=== PATIENT | female | born 1965 | race Caucasian/White ===

== ENCOUNTER 2016-08-08 08:24 | Day surgery (SDC) | payer OTHER ==
[2016-08-06 08:32] VITALS: BMI 27.4
[~2016-08-08 08:24] MED LIST: LACTATED RINGERS 1,000 ML IV SCH
[2016-08-08 08:48] VITALS: RESP 16; TEMP 97.6
[2016-08-08] MEDS ORDERED: LIDOCAINE 1% 20 ML VIAL (10MG/ML) FOR IV START SQ ONE (08:51)
[2016-08-08] MEDS ORDERED: PROPOFOL 10 MG/ML 20 ML VIAL IV ONE (09:22)
--- NOTE | 2016-08-08 09:32 | P.PCN ---
Date of Procedure: 08/08/16 Procedure(s) Performed: BRIEF HISTORY: Patient is a 51-year-old, pleasant, white female, scheduled for an upper endoscopy as a part of evaluation of intermittent dysphagia to solids for the last 1 year duration. His symptoms have been once or twice a week and often to solids. She denies any heartburn. She reports no odynophagia. She denies any choking episodes. In view of the symptoms she is scheduled for an upper endoscopy with possible dilation. PROCEDURE PERFORMED: Esophagogastroduodenoscopy with biopsy. PREOPERATIVE DIAGNOSIS: Intermittent dysphagia to solids of 1 year duration. IV sedation per anesthesia. PROCEDURE: After informed consent was obtained, the patient was brought into the endoscopy unit. IV conscious sedation was administered by Anesthesia under continuous monitoring. Initially the Olympus GIF-140 video endoscope was inserted into the mouth. Esophagus intubated without any difficulty. It was gradually advanced into the stomach and duodenum and carefully examined. The bulb and the second part of the duodenum appeared normal. The scope at this time was withdrawn to the stomach, adequately insufflated with air, and upon careful examination, mucosa of the antrum, had mild gastritis and biopsies were done from this area. The body, cardia and the fundus appeared normal. The scope was then withdrawn into the esophagus. The GE junction was located at 39 cm from the incisors. The esophagus appeared normal. Biopsies were done from the midesophagus to rule out eosinophilic esophagitis. There were no erosions or ulcerations seen, no evidence of esophageal stricture and the patient tolerated the procedure well. IMPRESSION: 1. Mild antral gastritis. 2. Normal-appearing esophagus with no evidence of esophagitis, esophageal stricture or esophageal. RECOMMENDATIONS: The findings of this examination were discussed with the patient as well as her family. She was advised to follow with the biopsy results. She may benefit from a trial of Prilosec 20 mg daily and he suggested that she can use [id number] medication for 6 weeks to see if this resolves the symptoms.
[2016-08-08 10:04] VITALS: BP 113/69; PULSE 61
== END 2016-08-08 10:32 | disposition home or self-care (01) ==
LOC: ORWHC2ENDO 08:24
PROVIDERS: ATTEND Internal Medicine Gastroenterology
DX: K29.50 Unspecified chronic gastritis without bleeding (principal); R13.10 Dysphagia, unspecified; J45.909 Unspecified asthma, uncomplicated; G47.33 Obstructive sleep apnea (adult) (pediatric); E07.9 Disorder of thyroid, unspecified; Z79.899 Other long term (current) drug therapy; Z88.5 Allergy status to narcotic agent; Z88.2 Allergy status to sulfonamides
CPT/HCPCS: 81025; 88305; 88342; 43239; J2704

== ENCOUNTER → 2018-01-11 | Outpatient (CLI) | payer OTHER ==
--- NOTE | 2018-01-11 22:08 | CT ---
EXAMINATION TYPE: CT abdomen pelvis wo con DATE OF EXAM: 01/11/2018 HISTORY: Mid abdominal pain x [address] DLP: 934 mGycm. Automated Exposure Control for Dose Reduction was Utilized. TECHNIQUE: CT scan of the abdomen and pelvis is performed without oral or IV contrast. COMPARISON: NONE FINDINGS: Within the limitations of a non-contrast study, the following observations are made. LUNG BASES: No significant abnormality is appreciated. LIVER/GB: No significant abnormality is appreciated. PANCREAS: No significant abnormality is seen. SPLEEN: No significant abnormality is seen. ADRENALS: No significant abnormality is seen. KIDNEYS: No renal calculi or hydronephrosis is present bilaterally. BOWEL: Evaluation bowel slightly suboptimal secondary to lack of enteric contrast. There is no suspic ious small or large bowel dilatation. There is low lying cecum into the right pelvis. Normal-appearin g appendix is seen ascending from cecum. GENITAL ORGANS: Slightly retroverted uterus is seen. Scattered pelvic phleboliths are present. LYMPH NODES: No greater than 1cm abdominal or pelvic lymph nodes are appreciated. OSSEOUS STRUCTURES: No significant abnormality is seen. OTHER: There is mild calcified plaque of distal abdominal aorta extending into pelvic branch vessels. IMPRESSION: No suspicious acute finding is seen on noncontrast study to account for patient's symptom s.
== END | disposition home or self-care (01) ==
LOC: RADCTMAIN 18:26
PROVIDERS: ATTEND Family Medicine
DX: R10.9 Unspecified abdominal pain (principal)
CPT/HCPCS: 74176

== ENCOUNTER 2018-02-12 10:54 | Day surgery (SDC) | payer OTHER ==
[2018-02-10 12:01] VITALS: BMI 32.3
[~2018-02-12 10:54] MED LIST changes: +LIDOCAINE 1% 20 ML VIAL (10MG/ML) FOR IV START INTRADERMA PRN; +MIDAZOLAM 2 MG/2 ML VIAL IV PRN
[2018-02-12 11:38] VITALS: RESP 16; TEMP 98.4
[2018-02-12] MEDS ORDERED: LIDOCAINE 1% INJ 10MG/ML (20 ML MDV) ONE (12:26)
[2018-02-12] MEDS ORDERED: PROPOFOL 10 MG/ML 20 ML VIAL IV ONE (12:26)
--- NOTE | 2018-02-12 12:45 | P.PCN ---
Date of Procedure: 02/12/18 Procedure(s) Performed: BRIEF HISTORY: Patient is a 53-year-old pleasant white female scheduled for an elective colonoscopy as a part of screening for colon neoplasia. PROCEDURE PERFORMED: Colonoscopy. PREOPERATIVE DIAGNOSIS: Screening for colon cancer. IV sedation per Anesthesia. PROCEDURE: After informed consent was obtained, the patient, was brought into the endoscopy unit. IV sedation was administered by Anesthesia under continuous monitoring. Digital rectal examination was normal. Initially the Olympus CF- 160 flexible video colonoscope was then inserted in the rectum, gradually advanced into the cecum without any difficulty. Careful examination was performed as the scope was gradually being withdrawn. Ileocecal valve and the appendiceal orifice were visualized and appeared normal. Prep was excellent. Mucosa of the cecum, ascending colon, transverse colon, descending colon, sigmoid colon, and rectum appeared normal. Retroflexion was performed in the rectum and no lesions were seen. Scattered sigmoid diverticula seen. The patient tolerated the procedure well. IMPRESSION: Normal-appearing colon from rectum to cecum with no evidence of colorectal neoplasia. Scattered sigmoid diverticulosis. RECOMMENDATIONS: Findings of this examination were discussed with the patient well as her family. She was advised to have a repeat screening colonoscopy in 10 years.
[2018-02-12 13:04] VITALS: BP 83/65; PULSE 63
== END 2018-02-12 13:47 | disposition home or self-care (01) ==
LOC: ORWHC2ENDO 10:54
PROVIDERS: ATTEND Internal Medicine Gastroenterology
DX: Z12.11 Encounter for screening for malignant neoplasm of colon (principal); K57.30 Diverticulosis of large intestine without perforation or abscess without bleeding; E78.5 Hyperlipidemia, unspecified; J45.909 Unspecified asthma, uncomplicated; E07.9 Disorder of thyroid, unspecified; F32.9 Major depressive disorder, single episode, unspecified; Z88.2 Allergy status to sulfonamides; Z88.5 Allergy status to narcotic agent; Z79.890 Hormone replacement therapy; Z79.82 Long term (current) use of aspirin; Z79.899 Other long term (current) drug therapy
CPT/HCPCS: 81025; G0121; J2001; J2704

== ENCOUNTER → 2018-07-02 | Outpatient (CLI) | payer OTHER ==
--- NOTE | 2018-07-05 11:32 | MM ---
Reason for exam: screening (asymptomatic). Last mammogram was performed 1 year ago. History: Family history of premenopausal breast cancer in paternal aunt and breast cancer in paternal aunt at age 40. Silicone gel implants, September 2012. Benign US LT VAD breast biopsy of the left breast, August 27, 2012. Benign left breast aspiration of the left breast, August 27, 2012. Benign stereotactic core biopsy of the right breast, October 25, 2001. Physical Findings: A clinical breast exam by your physician is recommended on an annual basis and results should be correlated with mammographic findings. MG Screening Mammo Implant/CAD Bilateral CC and MLO view(s) were taken. Prior study comparison: June 19, 2017, bilateral MG screening mammo implant/CAD. May 16, 2016, bilateral MG diag mamm implants KARISSA w CAD. The breast tissue is heterogeneously dense. This may lower the sensitivity of mammography. Previous mammotome biopsy in the left breast x 2. Asymmetric breast tissue in the right breast at clip, stable. There is no discrete abnormality. Bilateral subpectoral implants. ASSESSMENT: Benign, BI-RAD 2 RECOMMENDATION: Routine screening mammogram of both breasts in 1 year.
== END ==
LOC: RADMAMWWP 13:00
PROVIDERS: ATTEND Family Medicine
DX: Z12.31 Encounter for screening mammogram for malignant neoplasm of breast (principal)
CPT/HCPCS: 77067

== ENCOUNTER 2020-10-02 09:36 | Day surgery (SDC) | payer BC, OTHER ==
[2020-09-28 15:02] VITALS: BMI 28.8
[~2020-10-02 09:36] MED LIST changes: -LACTATED RINGERS 1,000 ML IV SCH; -LIDOCAINE 1% 20 ML VIAL (10MG/ML) FOR IV START INTRADERMA PRN; -MIDAZOLAM 2 MG/2 ML VIAL IV PRN; +SODIUM CHLORIDE 0.9% 1,000 ML IV SCH
[2020-10-02 10:10] LABS: Basophils % (A) 1 %; Eosinophils # (A) 0.1 k/uL (0-0.7); Eosinophils % (A) 2 %; HCT 43.6 % (34.0-46.0); HGB 14.5 gm/dL (11.4-16.0); Lymphocytes # (A) 2.3 k/uL (1.0-4.8); Lymphocytes % (A) 44 %; MCH 30.8 pg (25.0-35.0); MCHC 33.4 g/dL (31.0-37.0); MCV 92.4 fL (80.0-100.0); Mean Platelet Volume 7.7; Monocytes # (A) 0.3 k/uL (0-1.0); Monocytes % (A) 6 %; Neutrophils # (A) 2.4 k/uL (1.3-7.7); Neutrophils % (A) 45 %; Platelet Count 233 k/uL (150-450); RBC 4.72 m/uL (3.80-5.40); RDW 12.6 % (11.5-15.5); WBC 5.2 k/uL (3.8-10.6)
[2020-10-02] MEDS ORDERED: ONDANSETRON 4 MG/2 ML VIAL ONE ×2 (10:24→11:31)
[2020-10-02] MEDS ORDERED: MIDAZOLAM 2 MG/2 ML VIAL IVP ONE (10:30)
[2020-10-02 11:20] LABS: African American GFR (CKD) >90 (>60 ml/min/1.73 sqM); Anion Gap 6 mmol/L; Blood Urea Nitrogen 11 mg/dL (7-17); Calcium 9.7 mg/dL (8.4-10.2); Carbon Dioxide 29 mmol/L (22-30); Chloride 106 mmol/L (98-107); Glucose 92 mg/dL (74-99); Non-African American GFR(CKD) >90 (>60 ml/min/1.73 sqM); Potassium 4.5 mmol/L (3.5-5.1); Sodium 141 mmol/L (137-145)
[2020-10-02] MEDS ORDERED: PROPOFOL 10 MG/ML 20 ML VIAL IV ONE (11:31)
[2020-10-02] MEDS ORDERED: MIDAZOLAM 2 MG/2 ML VIAL ONE (11:31)
[2020-10-02] MEDS ORDERED: HEPARIN SODIUM,PORCINE 10,000 UNIT/ML 1 ML VIAL ONE (11:31)
[2020-10-02] MEDS ORDERED: ISOPROTERENOL 250 MCG/1.25 ML SYR IV ONE (11:31)
[2020-10-02] MEDS ORDERED: fentaNYL (PF) 50 MCG/ML 2 ML AMP ONE (11:31)
[2020-10-02] MEDS ORDERED: PROTAMINE SULFATE 10 MG/ML 5 ML VIAL IV ONE (11:31)
[2020-10-02] MEDS ORDERED: PHENYLEPHRINE-0.9% NACL SYG 1,000 MCG/10 ML SYRINGE ONE (11:31)
[2020-10-02] MEDS ORDERED: KETAMINE 10 MG/ML 20 ML VIAL ONE (11:31)
[2020-10-02] MEDS ORDERED: LIDOCAINE 1% INJ 10MG/ML (20 ML MDV) ONE (12:01)
[2020-10-02] MEDS ORDERED: LIDOCAINE 1% INJ 10MG/ML (20 ML MDV) SQ ONE (12:10)
[2020-10-02] MEDS ORDERED: HEPARIN SODIUM (1,000 UNIT/ML) 1,000 UNIT in SODIUM CHLORIDE 0.9% 1,000 ML IRRIGATION ONE (13:25)
[2020-10-02] MEDS ORDERED: HYDROcodone/APAP 5-325MG 1 EACH TAB PO PRN (14:14)
[2020-10-02] MEDS ORDERED: ACETAMINOPHEN TAB 325 MG TAB PO PRN (14:14)
[2020-10-02] MEDS ORDERED: SODIUM CHLORIDE 0.9% 1,000 ML IV ONE (14:40)
--- NOTE | 2020-10-02 14:57 | P.PRLE ---
RE: Estefany Fajardo Dear Shelly Allison has been admitted to the hospital for SVT which is adenosine sensitive. 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 She underwent successful ablation of the left-sided, retrogradely conducting posterior-lateral accessory pathway The tachycardia was rendered noninducible There was no further evidence for accessory pathway conduction at the end of the procedure I have asked her to take aspirin 325 mg by mouth daily for a month which he may stop thereafter She may stop metoprolol All other medications continue as before Thank you for entrusting me with the care of the patient Warm regards Sincerely Clay Sam
--- NOTE | 2020-10-02 15:42 | CE ---
CARDIAC ELECTROPHYSIOLOGY REPORT Estefany Fajardo is a 55-year-old female who has recurrent supraventricular tachycardia, adenosine sensitive, symptomatic. She has had multiple ER visits on account of this. She is brought into the EP lab for diagnostic EP study and possible radiofrequency ablation. Patient is brought to the EP lab in a fasting state. Written informed consent was obtained prior to the procedure. The right and left groins were prepped and draped as per protocol and 1% lidocaine was used for local anesthesia. Venous sheaths were placed in the right and left femoral veins and via these diagnostic catheters were positioned the right heart (high right atrial catheter, His bundle catheter, RV and coronary sinus catheter). Isuprel was used during diagnostic testing. Baseline measurements were as follows: Sinus cycle length was normal, AK interval 125 milliseconds, QRS 93 milliseconds, QT 348 milliseconds. Sinus cycle length was 835 milliseconds. AH interval 75 milliseconds, HV interval 24 milliseconds. QRS was narrow. No delta waves noted. A full diagnostic EP study was performed on and off Isuprel. Sinus node recovery times are 600, 500 and 400 milliseconds with 1130, 1173 and 1143 milliseconds. Corresponding corrected sinus node recovery times were within normal limits. AV node Wenckebach block 360 milliseconds, VA Wenckebach block 310 milliseconds. During ventricular pacing at 400 milliseconds, there was a change in the retrograde conduction activation pattern with eccentric conduction noted. During atrial extra stimulation, nonsustained SVT consistent with orthodromic re-entry was noted with a VA time of 135 milliseconds. Isuprel was started. Straight pacing was performed and tachycardia was induced. This tachycardia was consistent with orthodromic reentry with a VA time of about 140 milliseconds. Ventricular pacing was performed from the RV base and the post pacing interval minus tachycardia cycle length was 103 milliseconds. The VA AV response was noted consistent with ORT. The left and right transseptal catheterization was performed. RA pressure 13/1/7 milliseconds. LV pressure 33/-4/10 milliseconds. An irrigated tip catheter was placed. A long sheath was placed in the left atrium. The mitral anulus was mapped during orthodromic reentry. The earliest set of atrial activation was found and RF ablation was applied here which resulted in termination of tachycardia. RF ablation was then applied in sinus rhythm at the earliest site and following ablation, a full EP study was performed on and off Isuprel. Straight pacing in the right atrium, coronary sinus, right ventricle, and as well as extra stimulation at both sites on and off Isuprel did not reveal any evidence for orthodromic reentry nor any evidence for the retrograde conducting accessory pathway (posterior-lateral). All catheters were then removed at the end of the procedure and the patient was transferred back to telemetry. RESULT: 1. Diagnostic EP study revealing orthodromic re-entry as a mechanism for tachycardia. 2. 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 3. Successful ablation was performed and there was no further evidence for the retrograde accessory pathway conduction. PLAN: Aspirin for 30 days. Stop metoprolol. Continue all other medications as before. MMODL / IJN: [id number] /
[2020-10-02] MEDS ORDERED: ACETAMINOPHEN IV (For NPO) 1,000 MG in EMPTY BAG 1 BAG IVPB ONE (16:00)
[2020-10-02] MEDS: ASPIRIN 325 MG TAB PO SCH (17:12)
[2020-10-02] MEDS ORDERED: ATORVASTATIN 10 MG TAB PO SCH (21:00)
[2020-10-03] MEDS ORDERED: LEVOTHYROXINE 100 MCG TAB PO SCH (06:30)
[2020-10-03] MEDS: ASPIRIN 325 MG TAB PO SCH (07:38)
[2020-10-03 07:47] VITALS: BP 94/47; PULSE 43; RESP 16; TEMP 98.6
[2020-10-03] MEDS: SODIUM CHLORIDE 0.9% 250 ML IV SCH ×3 (08:20→09:53)
--- NOTE | 2020-10-03 08:29 | DS ---
DISCHARGE SUMMARY Estefany Fajardo is a 55-year-old female with recurrent palpitations, adenosine sensitive. She underwent a diagnostic EP study and was found to have retrogradely conducting left posterior lateral accessory pathway associated with orthodromic reentry, which is very easily inducible. She underwent mapping of the SVT and successful ablation of this pathway by the transseptal route. The tachycardia was rendered noninducible. The pathway was eliminated with RF ablations quite expeditiously. Following that, a detailed testing was performed. No other arrhythmias were induced. 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 These are not addressed at this time. Today, her blood pressure is 94/47 mmHg, but she denies any dizziness or lightheadedness. Pulse rate is in the 70s. She is afebrile, 98 degrees Fahrenheit. No JVD. Normal breath sounds. No rhonchi, no crackles. Normal heart sounds. No murmurs, no rub, no gallop. Abdomen is soft. Extremities are warm. There is no swelling in either groin. No hematoma. No tenderness. No edema in the lower extremities. The 12-lead EKG shows sinus rhythm, normal ST segments, left bundle branch block, PVCs with a late transition and upright QRS in the inferior leads, negative in aVL in M- shaped pattern in lead I consistent with posterior RVOT focus. 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 The tachycardia was rendered noninducible. 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 These were not addressed at this time. PLAN: 1. Aspirin 325 mg p.o. daily for 1 month and this was discussed with the patient. 2. Stop metoprolol completely. 3. I will see her again in about 2 weeks. 4. IV fluids today. 5. Ambulate. 6. I explained the instructions to her for the next 3-4 days and we will see her again in about 2 weeks or so. MMODL / IJN: [id number] /
== END 2020-10-03 11:15 | disposition home or self-care (01) ==
LOC: CATHEP 09:36 → 6NMEDSUR 14:57 → CATHEP 10-03 11:15
PROVIDERS: ATTEND Internal Medicine Clinical Cardiac Electrophysiology
DX: I47.1 Supraventricular tachycardia (principal); I49.3 Ventricular premature depolarization; I44.7 Left bundle-branch block, unspecified; Z82.49 Family history of ischemic heart disease and other diseases of the circulatory system; Z79.890 Hormone replacement therapy; Z79.899 Other long term (current) drug therapy; Z88.5 Allergy status to narcotic agent; Z88.2 Allergy status to sulfonamides
CPT/HCPCS: 93623; 93613; 93653; 85347; 80048; 85025; C1894; C1769 ×3; C1730 ×2; C1893; C1732; J2250; J2720; J1644 ×2; J2405; J2001; J3010; J0131; J2370; J2704